=== PATIENT | female | born 1990 | race Caucasian/White ===

== ENCOUNTER → 2016-08-16 | Outpatient (CLI) | payer BC | LOC: LAB 08:28 | DX: G37.9 Demyelinating disease of central nervous system, unspecified (principal) | CPT/HCPCS: 36415; 82565; 84520 ==

== ENCOUNTER → 2016-08-18 | Outpatient (CLI) | payer BC | LOC: EMI 09:17 | DX: G37.9 Demyelinating disease of central nervous system, unspecified (principal); R29.818 Other symptoms and signs involving the nervous system | CPT/HCPCS: 70553; A9577; J7050 ==

== ENCOUNTER 2020-03-15 20:21 | Emergency (ER) | payer BC ==
[~2020-03-15 20:21] MED LIST: FLEXERIL 10 MG10 MG PO; IBUPROFEN600 MG PO
[2020-03-15] MEDS ORDERED: ZOFRAN 4 MG TAB4 MG PO (22:56)
== END 2020-03-15 23:15 | disposition home or self-care (01) ==
LOC: ER1 20:21
DX: G43.909 Migraine, unspecified, not intractable, without status migrainosus (principal); Z79.899 Other long term (current) drug therapy
CPT/HCPCS: 96374; 96375; 99283; J1200; J1885; J2765

== ENCOUNTER 2021-08-06 16:47 | Emergency (ER) | payer BC ==
[~2021-08-06 16:47] MED LIST changes: +ZOFRAN 4 MG TAB4 MG PO
== END 2021-08-06 21:25 | disposition home or self-care (01) ==
LOC: ER1 16:47
DX: G43.909 Migraine, unspecified, not intractable, without status migrainosus (principal); Z96.643 Presence of artificial hip joint, bilateral; Z79.899 Other long term (current) drug therapy
CPT/HCPCS: 70450; 93005; 96374; 96375; 99284; J1200; J1885; J2270; J2405; J2765